=== PATIENT | female | born 1985 | race Two or more races ===

== ENCOUNTER 2020-10-08 15:10 | Emergency (ER) | payer OTHER ==
[2020-10-08 15:33] VITALS: BP 121/79; PULSE 92; TEMP 98.2; BMI 21.4
[2020-10-08 17:31] LABS: EPI CELLS >36 /uL (0-25.1); HCG,QUALITATIVE URINE Negative; HYALINE CASTS 3 /uL (0-3.1); PH,URINE 6.5 (5.0-8.0); URINE APPEARANCE CLOUDY; URINE BACTERIA >9,000 /uL (0-1359); URINE BILIRUBIN NEGATIVE (NEGATIVE); URINE COLOR YELLOW; URINE GLUCOSE (UA) NEGATIVE (NEGATIVE); URINE KETONE NEGATIVE (NEGATIVE); URINE LEUK ESTERASE 1+ (NEGATIVE); URINE NITRITE POSITIVE (NEGATIVE); URINE PROTEIN NEGATIVE (NEGATIVE); URINE RBC 110 /uL (0-23.9); URINE WBC 32 /uL (0-25.8)
[2020-10-08] MEDS ORDERED: SULFAMETHOXAZOLE/TRIMETHOPRIM 800MG/160MG D.S. TABLET PO ONE (17:46)
[2020-10-08] MEDS ORDERED: SULFAMETHOXAZOLE/TRIMETHOPRIM 800MG/160MG D.S. TABLET ONE ×2 (17:49)
== END 2020-10-08 17:52 | disposition home or self-care (01) ==
LOC: JER 15:10 → JERFT 15:10 → JER 17:52
DX: N30.00 Acute cystitis without hematuria (principal)
CPT/HCPCS: 36415; 81003; 84703; 87070; 87077; 87086; 87186; 87205; 87491; 87591; 99284-25